=== PATIENT | female | born 1935 | race Caucasian/White ===

== ENCOUNTER → 2016-07-05 | Outpatient (CLI) | payer MEDICARE, OTHER ==
[~2016-07-05] MED LIST: ARTIFICIAL TEARS OU; CALCIUM CARBON500 M1 PO; CALCIUM WITH D31 CTB PO; CENTRUM1 TAB PO; CIPRO 500MG TA500 MG PO; CLARITIN REDITA10 MG PO; EVISTA 60MG60 MG/TAB PO; EVISTA PO; LASIX; LASIX 20MG TABL20 MG PO; MAXZIDE; MVI PO; NEVANAC OD; NORCO 325 MG-51 TAB PO; PRINIVIL10 MG PO; TYLENOL PM EXTR1 TA1 PO; VESICARE PO; [UNRECOGNIZED DRUG - OTHER]
== END ==
LOC: COL.RAD 12:01
DX: R91.1 Solitary pulmonary nodule (principal); S32.018A Other fracture of first lumbar vertebra, initial encounter for closed fracture
CPT/HCPCS: Q9967

== ENCOUNTER 2016-12-17 09:19 | Outpatient (CLI) | payer MEDICARE, OTHER ==
[~2016-12-17] VITALS: Ht 167.6 cm; Wt 45.9 kg
[2016-12-17] VITALS (22 sets, daily range): BP systolic 113–144; BP diastolic 41–102; PULSE 54–86; TEMP 98.2
[~2016-12-17 09:19] MED LIST changes: +ARICEPT ODT10 MG PO; +FOSAMAX 70MG TA70 MG PO; +PRINIVIL20 MG PO
== END 2016-12-17 15:30 | disposition home or self-care (01) ==
LOC: COL.RAD 09:19
DX: J18.1 Lobar pneumonia, unspecified organism (principal); J43.2 Centrilobular emphysema; J84.10 Pulmonary fibrosis, unspecified; R91.1 Solitary pulmonary nodule
CPT/HCPCS: J3010

== ENCOUNTER 2017-07-26 16:31 | Inpatient (IN) | payer MEDICARE, OTHER ==
[~2017-07-26] VITALS: Ht 167.6 cm; Wt 48.7 kg
[~2017-07-26 16:31] MED LIST changes: -ARTIFICIAL TEARS OU; +CENTRUM1 TA1 PO; -CENTRUM1 TAB PO; +LIQUIFILM TEARS15 ML OU
[2017-07-26 22:44] VITALS: BP 133/97; PULSE 86; TEMP 98.7
[2017-07-26] MEDS ORDERED: ANORO IH (22:59)
[2017-07-27 03:29] VITALS: BP 124/61; PULSE 61; TEMP 98.4
[2017-07-27 03:31] LABS: BASO % 0.2 % (0.0-2.0); EOS % 0.6 % (0-4.0); GRAN # 4.5 (1.4-6.5); GRAN % 70.9 % (42.2-75.2); HEMATOCRIT 39.9 % (37.0-47.0); HEMOGLOBIN 13.5 g/dl (12.5-16.0); LYMPH # 1.2 (1.2-3.4); LYMPH % 19.5 % (20.0-51.0); MEAN CELL VOLUME 91 fl (80.0-100.0); MEAN CORPUSCULAR HEMOGLOBIN 31 pg (27.0-31.0); MEAN CORPUSCULAR HGB CONC 34 g/dl (33.0-37.0); MEAN PLATELET VOLUME 11.6 fl (7.4-10.4); MONO # 0.5 (0.1-0.6); MONO % 8.3 % (1.7-9.3); PLATELET COUNT 100 K/mm3 (130-400); RED BLOOD COUNT 4.41 M/mm3 (4.10-5.30); REDCELL DISTRIBUTION WIDTH-CV 13.8 % (11.5-14.5)
[2017-07-27 03:42] LABS: ALBUMIN 3.4 gm/dL (3.5-5.0); CALCIUM 9.5 mg/dL (8.4-10.2); CREATININE, serum 0.77 mg/dL (0.52-1.25); POTASSIUM 4.6 mmol/L (3.4-5.0); TOTAL PROTEIN 6.6 gm/dL (6.4-8.2)
[2017-07-27 04:15] LABS: INR 1.1 (0.8-3.0); PROTHROMBIN TIME 12.7 SECONDS (9.7-12.8)
[2017-07-27 05:58] LABS: COLLECTION METHOD CLEAN CATCH
[2017-07-27 06:30] LABS: MUCOUS Present /lpf; PH 5 (5-8); SQUAMOUS EPITHELIAL None Seen /hpf; URINE APPEARANCE Clear; URINE BACTERIA Occasional /hpf; URINE BILIRUBIN Negative (NEGATIVE); URINE BLOOD 1+ (NEGATIVE); URINE COLOR Yellow; URINE GLUCOSE Negative (NEGATIVE); URINE KETONE Trace (NEGATIVE); URINE LEUKOCYTE ESTERASE Negative (NEGATIVE); URINE NITRATE Positive (NEGATIVE); URINE PROTEIN(semi-quant) Negative (NEGATIVE); URINE RBC 0-2 /hpf; URINE UROBILINOGEN Negative (NEGATIVE)
[2017-07-27 07:37] VITALS: BP 123/57; PULSE 56; TEMP 98
[2017-07-27 10:21] LABS: HEMOGLOBIN 13.8 g/dl (12.5-16.0)
[2017-07-27 11:52] VITALS: BP 132/64; PULSE 69; TEMP 98.1
[2017-07-27 13:34] LABS: HEMATOCRIT 41.6 % (37.0-47.0); HEMOGLOBIN 14.2 g/dl (12.5-16.0)
[2017-07-27 15:52] VITALS: BP 123/61; PULSE 73; TEMP 98.3
[2017-07-27 20:10] VITALS: BP 118/55; PULSE 60; TEMP 98.2
[2017-07-28] VITALS (7 sets, daily range): BP systolic 104–147; BP diastolic 49–81; PULSE 67–94; TEMP 97.6–98.9
[2017-07-28 07:16] LABS: BASO % 0.3 % (0.0-2.0); EOS # 0.1 (0.0-0.7); GRAN # 4.4 (1.4-6.5); HEMATOCRIT 38.6 % (37.0-47.0); HEMOGLOBIN 13.1 g/dl (12.5-16.0); LYMPH # 1.2 (1.2-3.4); LYMPH % 18.9 % (20.0-51.0); MEAN CELL VOLUME 90 fl (80.0-100.0); MEAN CORPUSCULAR HEMOGLOBIN 31 pg (27.0-31.0); MEAN CORPUSCULAR HGB CONC 34 g/dl (33.0-37.0); MEAN PLATELET VOLUME 12.6 fl (7.4-10.4); MONO # 0.6 (0.1-0.6); MONO % 9.5 % (1.7-9.3); PLATELET COUNT 88 K/mm3 (130-400); RED BLOOD COUNT 4.27 M/mm3 (4.10-5.30); REDCELL DISTRIBUTION WIDTH-CV 13.6 % (11.5-14.5)
[2017-07-28 07:32] LABS: CALCIUM 9.3 mg/dL (8.4-10.2); CREATININE, serum 0.73 mg/dL (0.52-1.25); MAGNESIUM 1.8 mg/dL (1.6-2.3); POTASSIUM 4.4 mmol/L (3.4-5.0)
[2017-07-29 04:38] VITALS: BP 108/82; PULSE 74; TEMP 98.3
[2017-07-29 06:07] LABS: BASO % 0.2 % (0.0-2.0); EOS # 0.1 (0.0-0.7); EOS % 1.8 % (0-4.0); GRAN # 3.8 (1.4-6.5); GRAN % 65.9 % (42.2-75.2); HEMOGLOBIN 12.6 g/dl (12.5-16.0); LYMPH # 1.2 (1.2-3.4); LYMPH % 21.3 % (20.0-51.0); MEAN CELL VOLUME 92 fl (80.0-100.0); MEAN CORPUSCULAR HEMOGLOBIN 32 pg (27.0-31.0); MEAN CORPUSCULAR HGB CONC 34 g/dl (33.0-37.0); MEAN PLATELET VOLUME 12.9 fl (7.4-10.4); MONO # 0.6 (0.1-0.6); MONO % 10.6 % (1.7-9.3); PLATELET COUNT 89 K/mm3 (130-400); REDCELL DISTRIBUTION WIDTH-CV 13.6 % (11.5-14.5)
[2017-07-29 06:18] LABS: HEMATOCRIT 36.8 % (37.0-47.0)
[2017-07-29 08:45] VITALS: BP 121/72; PULSE 77; TEMP 98.3
[2017-07-29] MEDS ORDERED: DULCOLAX STOOL100 MG PO (10:21)
[2017-07-29 11:30] VITALS: BP 120/89; PULSE 80; TEMP 97.6
== END 2017-07-29 14:03 | DRG 543 ==
LOC: COL.ER 16:31 → JCC 21:21
PROVIDERS: Internal Medicine; Nurse Practitioner; Surgery
DX: M80.052A Age-related osteoporosis with current pathological fracture, left femur, initial encounter for fracture (principal); S36.892A Contusion of other intra-abdominal organs, initial encounter; E44.0 Moderate protein-calorie malnutrition; Z68.1 Body mass index [BMI] 19.9 or less, adult; I10 Essential (primary) hypertension; F03.90 Unspecified dementia, unspecified severity, without behavioral disturbance, psychotic disturbance, mood disturbance, and anxiety; F17.210 Nicotine dependence, cigarettes, uncomplicated; W01.0XXA Fall on same level from slipping, tripping and stumbling without subsequent striking against object, initial encounter; J44.9 Chronic obstructive pulmonary disease, unspecified; S30.1XXA Contusion of abdominal wall, initial encounter
CPT/HCPCS: 99223-AI; 99232-AI; 99239; J1170; J2270; J2550; J7120

== ENCOUNTER 2017-07-29 10:27 | Inpatient (IN) | payer MEDICARE, OTHER ==
[~2017-07-29] VITALS: Ht 167.6 cm; Wt 46.2 kg
[~2017-07-29 10:27] MED LIST changes: +ANORO IH; +DULCOLAX STOOL100 MG PO
[2017-07-29 14:41] VITALS: BP 108/47; PULSE 74; TEMP 99.3
[2017-07-29 20:15] VITALS: BP 112/54; PULSE 67
[2017-07-30 05:49] VITALS: BP 101/58; PULSE 64; TEMP 97.6
[2017-07-30 15:53] VITALS: BP 104/49; PULSE 70; TEMP 98.3
[2017-07-31 04:58] VITALS: BP 110/63; PULSE 68; TEMP 97.9
[2017-07-31 15:35] VITALS: BP 123/54; PULSE 71; TEMP 98.3
[2017-08-01 05:38] VITALS: BP 117/58; PULSE 71; TEMP 97.7
[2017-08-01 14:00] VITALS: BP 113/59; PULSE 65; TEMP 98.5
[2017-08-02 06:13] VITALS: BP 103/63; PULSE 69; TEMP 98.6
[2017-08-02 17:16] VITALS: BP 115/60; PULSE 77; TEMP 98.3
[2017-08-03 06:21] VITALS: BP 123/53; PULSE 72; TEMP 98.4
[2017-08-03 17:20] VITALS: BP 100/51; PULSE 87; TEMP 97.9
[2017-08-04 06:09] VITALS: BP 118/68; PULSE 69; TEMP 98
[2017-08-04 15:13] VITALS: BP 120/66; PULSE 88; TEMP 98.8
[2017-08-05 06:29] LABS: BASO % 0.6 % (0.0-2.0); EOS # 0.2 (0.0-0.7); EOS % 2.9 % (0-4.0); GRAN # 2.9 (1.4-6.5); GRAN % 55.8 % (42.2-75.2); HEMOGLOBIN 11.5 g/dl (12.5-16.0); LYMPH # 1.4 (1.2-3.4); LYMPH % 26.5 % (20.0-51.0); MEAN CELL VOLUME 93 fl (80.0-100.0); MEAN CORPUSCULAR HEMOGLOBIN 31 pg (27.0-31.0); MEAN CORPUSCULAR HGB CONC 33 g/dl (33.0-37.0); MEAN PLATELET VOLUME 11.5 fl (7.4-10.4); MONO # 0.7 (0.1-0.6); MONO % 13.8 % (1.7-9.3); PLATELET COUNT 298 K/mm3 (130-400); RED BLOOD COUNT 3.74 M/mm3 (4.10-5.30); REDCELL DISTRIBUTION WIDTH-CV 14.4 % (11.5-14.5)
[2017-08-05 06:40] LABS: HEMATOCRIT 34.7 % (37.0-47.0)
[2017-08-05 06:54] VITALS: BP 124/64; PULSE 72; TEMP 98
[2017-08-05 15:10] VITALS: BP 103/43; PULSE 71; TEMP 97.9
[2017-08-06 06:22] VITALS: BP 111/43; PULSE 63; TEMP 97.9
[2017-08-06 18:36] VITALS: BP 98/55; PULSE 80; TEMP 98.7
[2017-08-07 03:48] VITALS: BP 97/53; PULSE 69; TEMP 98.3
[2017-08-07 11:10] VITALS: PULSE 64
[2017-08-07 17:44] VITALS: BP 102/65; PULSE 71; TEMP 98.3
[2017-08-08 05:32] VITALS: BP 111/56; BP 125/59; PULSE 70; PULSE 77; TEMP 98.3; TEMP 98.5
[2017-08-08 16:15] VITALS: BP 103/57; PULSE 87; TEMP 97.6
[2017-08-09 05:21] VITALS: BP 103/60; PULSE 76; TEMP 98.6
[2017-08-09] MEDS ORDERED: IPRATROPIUM BROM3 M1 IH ×2 (09:07)
[2017-08-09] MEDS ORDERED: NICODERM C21 MG/PATC TD (09:08)
[2017-08-09] MEDS ORDERED: TYLENOL 325MG325 MG PO (09:08)
[2017-08-09] MEDS ORDERED: DULCOLAX S10 MG/SUPP RC (09:09)
[2017-08-09] MEDS ORDERED: COLACE 100100 MG/CAP PO (09:09)
[2017-08-09] MEDS ORDERED: SENOKOT S 50 MG1 TAB PO (09:10)
[2017-08-09] MEDS ORDERED: ULTRAM 50MG TAB50 MG PO (09:10)
== END 2017-08-09 12:20 | DRG 560 ==
PROVIDERS: Internal Medicine
DX: M80.052D Age-related osteoporosis with current pathological fracture, left femur, subsequent encounter for fracture with routine healing (principal); K56.7 Ileus, unspecified; E44.0 Moderate protein-calorie malnutrition; Z68.1 Body mass index [BMI] 19.9 or less, adult; W18.30XA Fall on same level, unspecified, initial encounter; I10 Essential (primary) hypertension; F03.90 Unspecified dementia, unspecified severity, without behavioral disturbance, psychotic disturbance, mood disturbance, and anxiety; S36.892D Contusion of other intra-abdominal organs, subsequent encounter; W01.0XXD Fall on same level from slipping, tripping and stumbling without subsequent striking against object, subsequent encounter; J43.9 Emphysema, unspecified
CPT/HCPCS: 99222-AI; 99232-AI; 99239; J1644

== ENCOUNTER → 2017-08-22 | Outpatient (REF) ==
[~2017-08-22] MED LIST changes: +COLACE 100100 MG/CAP PO; +DULCOLAX S10 MG/SUPP RC; +IPRATROPIUM BROM3 M1 IH; +NICODERM C21 MG/PATC TD; +SENOKOT S 50 MG1 TAB PO; +TYLENOL 325MG325 MG PO; +ULTRAM 50MG TAB50 MG PO
[2017-08-22 14:19] LABS: COLLECTION METHOD CLEAN CATCH
[2017-08-22 14:38] LABS: AMORPHOUS CRYSTAL Present /uL; MUCOUS Present /lpf; PH 5 (5-8); URINE APPEARANCE Hazy; URINE BACTERIA Rare /hpf; URINE BILIRUBIN Negative (NEGATIVE); URINE BLOOD Negative (NEGATIVE); URINE COLOR Amber; URINE GLUCOSE Negative (NEGATIVE); URINE KETONE Trace (NEGATIVE); URINE LEUKOCYTE ESTERASE Trace (NEGATIVE); URINE NITRATE Positive (NEGATIVE); URINE PROTEIN(semi-quant) Negative (NEGATIVE); URINE UROBILINOGEN Negative (NEGATIVE)
== END ==
LOC: ZLAB.STJ 14:17
PROVIDERS: Family Medicine
DX: R30.0 Dysuria (principal)

== ENCOUNTER 2018-06-03 08:54 | Observation (INO) | payer MEDICARE, OTHER ==
[2018-06-03] VITALS (26 sets, daily range): BP systolic 104–173; BP diastolic 44–109; PULSE 56–104; TEMP 97.5–98.8
[~2018-06-03] VITALS: Ht 165.1 cm; Wt 62.0 kg
[2018-06-03] MEDS ORDERED: ASPIRIN 81M81 MG/TA2 PO (09:13)
[2018-06-03] MEDS ORDERED: CLARITIN 1010 MG/TAB PO (09:15)
[2018-06-03] MEDS ORDERED: MYRBETR50MG PO (09:17)
[2018-06-03] MEDS ORDERED: COMBIRESP IH (09:18)
--- NOTE | 2018-06-03 10:15 | NUR ---
PT WAS PLACED ON THE TABLE. TIMEOUT DONE. MONITORING EQUIPMENT PLACED.
--- NOTE | 2018-06-03 10:25 | NUR ---
PT IS DOING WELL. NO PAIN MEDS.
--- NOTE | 2018-06-03 10:30 | NUR ---
PT IS DOING WELL. TOLERATING PROCEDURE WELL. NO PAIN MEDS
--- NOTE | 2018-06-03 10:35 | NUR ---
PT DOING WELL.
--- NOTE | 2018-06-03 10:45 | NUR ---
PT DOING WELL.
--- NOTE | 2018-06-03 10:50 | NUR ---
PT TOLERATING PROCEDURE WELL
--- NOTE | 2018-06-03 10:55 | NUR ---
PROCEDURE COMPLETED. STATES FEELS PRETTY GOOD. PT WILL BE TRANSFERED TO EU 9 ON O2 @2L/NC
--- NOTE | 2018-06-03 11:15 | NUR ---
Back from lungs bx. 2 liters via nasal cannula. Daughter bedside
--- NOTE | 2018-06-03 12:37 | NUR ---
Tranported to CT by bed
--- NOTE | 2018-06-03 12:40 | NUR ---
PT VERY SOA WHEN LAYING DOWN. 02 @ 6 L/NC. DR COHEN PRESENT AND PROCEDURE BEGUN
--- NOTE | 2018-06-03 12:45 | NUR ---
PT DOING WELL
--- NOTE | 2018-06-03 12:50 | NUR ---
PT DOING WELL. HOLDING STILL DIRECTED
--- NOTE | 2018-06-03 12:55 | NUR ---
PT DOING WELL. BREATHING IMPROVED WITH PLACEMENT OF CHEST TUBE.
--- NOTE | 2018-06-03 13:00 | NUR ---
PT TAKEN TO EU 9. FAMILY BROUGHT INTO ROOM. REPORT TO BHARATH REGARDING HOUSE SUPERVISIOR AND DR KEARNEY
--- NOTE | 2018-06-03 13:10 | NUR ---
Back from CT with chest tube noted left upper chest. O2 sats 92 % on 3 liters via nasal cannula. Denies pain and SOA at this time. Daughter bedside
--- NOTE | 2018-06-03 13:19 | NUR ---
[facility]ONK[facility] SUPERVISIOR WAS NOTIFIED THAT PT NEEDED TO BE ADMITTED. SPOKE TO [facility]. DR COHEN WAS ALERTED THAT HE NEEDED TO CALL DR KEARNEY AND WAS GIVEN DR KEARNEY NUMBER. BHARATH CHAU WAS NOTIFIED THAT SHE NEEDED TO CALL [facility] FOR THE ROOM NUMBER. [facility] JUST CALLED AND WAS GIVEN EU NUMBER FOR BHARATH CHAU
--- NOTE | 2018-06-03 14:29 | NUR ---
Report given to Hodan CHAUmarketing project lead
--- NOTE | 2018-06-03 15:40 | NUR ---
PATIENT ADMITED INTO ROOM 344 POST LUNG BX/PNEUMO. LEFT CHEST [place] VALVE INPLACE. LEFT LUNG BASES DEMINISHED. A&P NOTED EXP WHEEZE. PATIENT REPORTS SHE HAS A HX OF SMOKING AND "SHOULD WEAR HER OXYGEN AT HOME". 02 @ 3L PER NC TO KEEP SATS IN 90'S. PATIENT IS SOB WITH ACTIVITY. 1 ASSIST WITH CANE. PATIENT IS VOIDING AND HAD BM TODAY. VSS. HOSPITALIST AT BEDSIDE.
--- NOTE | 2018-06-03 19:49 | NUR ---
Pt resting in bed, states she is ready to go to sleep. Reporting smoe generalized pain, given tylenol for pain control. Given extra pillow to sleep. Given evening medicatinos. Left chest tube to depednent drainage, clear drainage. Told pt to leave the chest tube alone, pt states she understands not to touch it. Pt has no further needs at this time. Lights dimmed, bed alarm on, call light in reach.
--- NOTE | 2018-06-03 21:39 | NUR ---
Assisted patient with walker to restroom. Returned to bed. Was able to walk without much difficulty. Reports some minor pain to left hip, but is tolerable.
--- NOTE | 2018-06-03 22:55 | NUR ---
Upon entering pt's room, pt's chest tube was placed on her bedside table. LUng sounds equal, pt not SOB. Vitals obtained, 99% on RA. Hospitalist and Radiologist notified. Stat CXR ordered, repeat in 30 minutes. Pt now laying flat on back. Gauze and tegaderm applied to site.
--- NOTE | 2018-06-03 23:34 | NUR ---
Repeat chest xray obtained and read by radiologist. Does not appear to have changed from prior chest xray. Will keep a close eye on pt throughout the night. Pt told to notify staff if she starts to feel short of breath, or notices any changes. Pt in sight from nurses station.
--- NOTE | 2018-06-04 00:51 | NUR ---
Lung sounds auscultated bilaterally, equal chest rise. Pt on 3 L oxygen via NC. No reports of SOB, difficulty breathing.
--- NOTE | 2018-06-04 01:45 | NUR ---
Pt sleeping comfortably, equal chest rise, lung sounds audible bilaterally.
--- NOTE | 2018-06-04 02:15 | NUR ---
Pt attempting to get out of bed. Nurse in room, had pt get back into bed. Equal chest rise, lung sounds audible bilaterally. Oxygen on via NC.
--- NOTE | 2018-06-04 02:44 | NUR ---
Pt sitting up at side of bed, nurse at bedside. Put new gown on pt, pt now lying down. Equal chest rise and lung sounds auscultated bilaterally.
[2018-06-04 03:16] VITALS: BP 125/69; PULSE 69; TEMP 98.5
--- NOTE | 2018-06-04 05:12 | NUR ---
This nurse was in another pt's room, heard bed alarm going off for this pt. Found patient in the bathroom. Let pt finish and then helped patient back to bed. Lung sounds auscultated on both sides, chest rise even. Pt has no c/o SOB/dyspnea, or pain at this time.
--- NOTE | 2018-06-04 05:42 | NUR ---
Pt slept for most of the night. After chest tube was pulled out pt has been monitored closely throughout the night. Sp02 has been high 90's, chest rise even, lung sounds have been auscultated on both sides all night. No reports of SOB/dyspnea/pain.
[2018-06-04 08:32] VITALS: BP 93/48; PULSE 64; TEMP 97.5
--- NOTE | 2018-06-04 09:44 | NUR ---
Patient resting in bed, reading a book. She denies pain. Patient had chest xray this am. She is hopeful for discharge. She has been up to the bathroom. denies Sob. She had breakfast. Will continue to motnior.
--- NOTE | 2018-06-04 12:24 | NUR ---
Patient ready for discharge. Her daughter here to take her to [facility]. Hospitalist team rounded this am, orders obtained this am. Report called to [facility], all quesions answered. Patient dressed & wheeled out with all belongings.
--- NOTE | 2018-06-04 12:43 | NUR ---
ERIN and SW student attended clinical rounding and met with patient to discuss discharge planning. Patient lives in [facility] care at [facility]. Her PCP is Dr Rowland and she obtains her medications from [facility]. Patients daughter Martina is DPOA. Patient is dc back to [facility] today. ERIN contacted Tristan to inform daughter is transporting back. Discharge orders faxed. Patient dc to [facility] for intermediate designer care.
== END 2018-06-04 12:27 ==
LOC: COL.RAD 08:54 → SURG 15:40 → COL.RAD 16:49 → SURG 16:49
PROVIDERS: ADMIT Hospitalist
DX: C34.12 Malignant neoplasm of upper lobe, left bronchus or lung (principal); J93.9 Pneumothorax, unspecified; F03.90 Unspecified dementia, unspecified severity, without behavioral disturbance, psychotic disturbance, mood disturbance, and anxiety; J43.9 Emphysema, unspecified; Z79.82 Long term (current) use of aspirin; Z99.81 Dependence on supplemental oxygen; Z87.891 Personal history of nicotine dependence; Z85.51 Personal history of malignant neoplasm of bladder; Z92.21 Personal history of antineoplastic chemotherapy; Z90.710 Acquired absence of both cervix and uterus; Z80.3 Family history of malignant neoplasm of breast; Z88.0 Allergy status to penicillin
CPT/HCPCS: 99222-AI; G0378; G0379

== ENCOUNTER → 2018-06-23 | Outpatient (CLI) | payer MEDICARE, OTHER ==
[~2018-06-23] MED LIST changes: +ASPIRIN 81M81 MG/TA2 PO; +CLARITIN 1010 MG/TAB PO; +COMBIRESP IH; +MYRBETR50MG PO
[2018-06-23 09:25] LABS: CREATININE, serum 0.95 (0.52-1.25)
== END ==
LOC: COL.LAB 08:41
PROVIDERS: Internal Medicine Pulmonary Disease
DX: C34.92 Malignant neoplasm of unspecified part of left bronchus or lung (principal)

== ENCOUNTER → 2018-07-01 | Outpatient (CLI) | payer MEDICARE, OTHER ==
[2018-07-01 20:20] LABS: BASO % 0.7 % (0.0-2.0); EOS # 0.2 (0.0-0.7); EOS % 4.8 % (0-4.0); GRAN % 44.7 % (42.2-75.2); HEMATOCRIT 42.1 % (37.0-47.0); HEMOGLOBIN 13.6 g/dl (12.5-16.0); LYMPH # 1.8 (1.2-3.4); LYMPH % 40.5 % (20.0-51.0); MEAN CELL VOLUME 91 fl (80.0-100.0); MEAN CORPUSCULAR HEMOGLOBIN 29 pg (27.0-31.0); MEAN CORPUSCULAR HGB CONC 32 g/dl (33.0-37.0); MEAN PLATELET VOLUME 12.4 fl (7.4-10.4); MONO # 0.4 (0.1-0.6); MONO % 9.1 % (1.7-9.3); PLATELET COUNT 178 K/mm3 (130-400); RED BLOOD COUNT 4.65 M/mm3 (4.10-5.30); REDCELL DISTRIBUTION WIDTH-CV 14.5 % (11.5-14.5)
[2018-07-01 20:26] LABS: ALANINE AMINOTRANSFERASE < 6 U/L (9-52); ALBUMIN 3.9 gm/dL (3.5-5.0); ALKALINE PHOSPHATASE 59 U/L (50-136); ANION GAP 9 mmol/L (7-16); AST,SGOT 21 U/L (15-37); BILIRUBIN,TOTAL 0.5 mg/dL (0.0-1.0); BLOOD UREA NITROGEN 20 mg/dL (7-17); CALCIUM 9.8 mg/dL (8.4-10.2); CARBON DIOXIDE 25 mmol/L (22-30); CHLORIDE 105 mmol/L (98-107); CREATININE, serum 1.01 (0.52-1.25); GLUCOSE 146 mg/dL (74-106); POTASSIUM 4.6 mmol/L (3.4-5.0); SODIUM 140 mmol/L (137-145); TOTAL PROTEIN 7.3 gm/dL (6.4-8.2)
== END ==
LOC: ZCOL.LAB 19:21 → ZLAB.STJ 19:21
PROVIDERS: Family Medicine
DX: I10 Essential (primary) hypertension (principal)

== ENCOUNTER → 2018-07-09 | Outpatient (CLI) | payer MEDICARE, OTHER ==
[2018-07-09 17:33] LABS: BASO % 0.6 % (0.0-2.0); EOS # 0.2 (0.0-0.7); EOS % 3.6 % (0-4.0); GRAN # 2.6 (1.4-6.5); GRAN % 51.3 % (42.2-75.2); HEMATOCRIT 43.1 % (37.0-47.0); HEMOGLOBIN 13.7 g/dl (12.5-16.0); LYMPH # 1.7 (1.2-3.4); LYMPH % 34.4 % (20.0-51.0); MEAN CELL VOLUME 90 fl (80.0-100.0); MEAN CORPUSCULAR HEMOGLOBIN 29 pg (27.0-31.0); MEAN CORPUSCULAR HGB CONC 32 g/dl (33.0-37.0); MEAN PLATELET VOLUME 11.9 fl (7.4-10.4); MONO # 0.5 (0.1-0.6); MONO % 9.9 % (1.7-9.3); PLATELET COUNT 185 K/mm3 (130-400); RED BLOOD COUNT 4.79 M/mm3 (4.10-5.30); REDCELL DISTRIBUTION WIDTH-CV 14.5 % (11.5-14.5)
[2018-07-09 17:38] LABS: ALANINE AMINOTRANSFERASE < 6 U/L (9-52); ALBUMIN 4.1 gm/dL (3.5-5.0); ALKALINE PHOSPHATASE 70 U/L (50-136); ANION GAP 9 mmol/L (7-16); AST,SGOT 30 U/L (15-37); BILIRUBIN,TOTAL 0.5 mg/dL (0.0-1.0); BLOOD UREA NITROGEN 23 mg/dL (7-17); CALCIUM 9.9 mg/dL (8.4-10.2); CARBON DIOXIDE 25 mmol/L (22-30); CHLORIDE 105 mmol/L (98-107); CREATININE, serum 0.98 (0.52-1.25); GLUCOSE 89 mg/dL (74-106); POTASSIUM 4.5 mmol/L (3.4-5.0); SODIUM 140 mmol/L (137-145); TOTAL PROTEIN 7.9 gm/dL (6.4-8.2)
== END ==
LOC: ZLAB.STJ 16:38
PROVIDERS: Family Medicine
DX: C34.90 Malignant neoplasm of unspecified part of unspecified bronchus or lung (principal)

== ENCOUNTER → 2019-06-10 | Outpatient (CLI) | payer MEDICARE, OTHER | LOC: ZLAB.STJ 14:25 | DX: Z01.89 Encounter for other specified special examinations (principal) ==

== ENCOUNTER → 2019-06-11 | Outpatient (CLI) | payer MEDICARE, OTHER | LOC: ZLAB.STJ 12:04 | DX: Z01.89 Encounter for other specified special examinations (principal) ==

== ENCOUNTER → 2019-07-13 | Outpatient (CLI) | payer MEDICARE, OTHER ==
[2019-07-13 11:43] LABS: BASO % 0.6 % (0.0-2.0); EOS # 0.1 (0.0-0.7); EOS % 2.3 % (0-4.0); GRAN # 2.4 (1.4-6.5); GRAN % 46.6 % (42.2-75.2); HEMATOCRIT 42.5 % (37.0-47.0); HEMOGLOBIN 13.8 g/dl (12.5-16.0); LYMPH # 2.1 (1.2-3.4); LYMPH % 40.7 % (20.0-51.0); MEAN CELL VOLUME 92 fl (80.0-100.0); MEAN CORPUSCULAR HEMOGLOBIN 30 pg (27.0-31.0); MEAN CORPUSCULAR HGB CONC 33 g/dl (33.0-37.0); MEAN PLATELET VOLUME 11.5 fl (7.4-10.4); MONO # 0.5 (0.1-0.6); MONO % 9.6 % (1.7-9.3); PLATELET COUNT 178 K/mm3 (130-400); RED BLOOD COUNT 4.63 M/mm3 (4.10-5.30)
[2019-07-13 12:18] LABS: ALBUMIN 3.8 gm/dL (3.5-5.0); BILIRUBIN,TOTAL 0.5 mg/dL (0.0-1.0); CALCIUM 9.6 mg/dL (8.4-10.2); CREATININE, serum 0.78 (0.52-1.25); POTASSIUM 4.3 mmol/L (3.4-5.0); TOTAL PROTEIN 7.3 gm/dL (6.4-8.2)
== END ==
LOC: ZLAB.STJ 10:53
PROVIDERS: Family Medicine
DX: R79.89 Other specified abnormal findings of blood chemistry (principal)

== ENCOUNTER → 2019-09-03 | Outpatient (CLI) | payer MEDICARE, OTHER | LOC: ZLAB.STJ 14:48 | DX: Z11.59 Encounter for screening for other viral diseases (principal); Z01.84 Encounter for antibody response examination ==

== ENCOUNTER → 2019-11-13 | Outpatient (CLI) | payer MEDICARE, OTHER ==
[2019-11-13 13:22] LABS: BASO % 0.4 % (0.0-2.0); CALCIUM 9.5 mg/dL (8.4-10.2); CREATININE, serum 0.9 (0.52-1.25); EOS # 0.1 (0.0-0.7); EOS % 1.9 % (0-4.0); GRAN # 2.6 (1.4-6.5); GRAN % 55.4 % (42.2-75.2); HEMATOCRIT 44.5 % (37.0-47.0); HEMOGLOBIN 14.3 g/dl (12.5-16.0); LYMPH # 1.5 (1.2-3.4); LYMPH % 32.4 % (20.0-51.0); MEAN CELL VOLUME 91 fl (80.0-100.0); MEAN CORPUSCULAR HEMOGLOBIN 29 pg (27.0-31.0); MEAN CORPUSCULAR HGB CONC 32 g/dl (33.0-37.0); MEAN PLATELET VOLUME 11.8 fl (7.4-10.4); MONO # 0.5 (0.1-0.6); MONO % 9.7 % (1.7-9.3); PLATELET COUNT 194 K/mm3 (130-400); POTASSIUM 4.7 mmol/L (3.4-5.0); RED BLOOD COUNT 4.88 M/mm3 (4.10-5.30); REDCELL DISTRIBUTION WIDTH-CV 14.2 % (11.5-14.5)
== END ==
LOC: ZLAB.STJ 12:59
PROVIDERS: Family Medicine
DX: R68.89 Other general symptoms and signs (principal); R79.89 Other specified abnormal findings of blood chemistry

== ENCOUNTER → 2020-04-04 | Outpatient (REF) | payer MEDICARE, OTHER ==
[2020-04-04 18:47] LABS: COLLECTION METHOD CLEAN CATCH
[2020-04-04 18:59] LABS: BUDDING YEAST Present /hpf; MUCOUS Present /lpf; PH 5 (5-8); SQUAMOUS EPITHELIAL 0-2 /hpf; URINE APPEARANCE Hazy; URINE BACTERIA Rare /hpf; URINE BILIRUBIN Negative (NEGATIVE); URINE BLOOD Negative (NEGATIVE); URINE COLOR Yellow; URINE GLUCOSE Negative (NEGATIVE); URINE KETONE 1+ (NEGATIVE); URINE LEUKOCYTE ESTERASE Negative (NEGATIVE); URINE NITRATE Negative (NEGATIVE); URINE PROTEIN(semi-quant) 1+ (NEGATIVE); URINE RBC >50 /hpf; URINE UROBILINOGEN Negative (NEGATIVE)
== END ==
LOC: ZLAB.STJ 18:31
PROVIDERS: Family Medicine
DX: Z01.89 Encounter for other specified special examinations (principal)

== ENCOUNTER → 2020-04-26 | Outpatient (REF) ==
[2020-04-26 12:34] LABS: BASO % 0.5 % (0.0-2.0); EOS # 0.2 (0.0-0.7); EOS % 5.4 % (0-4.0); GRAN # 1.5 (1.4-6.5); GRAN % 41.2 % (42.2-75.2); HEMATOCRIT 40.9 % (37.0-47.0); HEMOGLOBIN 13.2 g/dl (12.5-16.0); LYMPH # 1.5 (1.2-3.4); LYMPH % 39.4 % (20.0-51.0); MEAN CELL VOLUME 91 fl (80.0-100.0); MEAN CORPUSCULAR HEMOGLOBIN 29 pg (27.0-31.0); MEAN CORPUSCULAR HGB CONC 32 g/dl (33.0-37.0); MEAN PLATELET VOLUME 11.6 fl (7.4-10.4); MONO # 0.5 (0.1-0.6); PLATELET COUNT 180 K/mm3 (130-400); RED BLOOD COUNT 4.52 M/mm3 (4.10-5.30)
[2020-04-26 12:48] LABS: CALCIUM 9.1 mg/dL (8.4-10.2); CREATININE, serum 0.81 (0.52-1.25); POTASSIUM 4.4 mmol/L (3.4-5.0)
== END ==
LOC: ZLAB.STJ 12:03
PROVIDERS: Family Medicine
DX: Z01.89 Encounter for other specified special examinations (principal)

== ENCOUNTER → 2020-04-27 | Outpatient (CLI) | payer MEDICARE, OTHER ==
[2020-04-27 10:19] LABS: COLLECTION METHOD CLEAN CATCH
[2020-04-27 10:55] LABS: AMORPHOUS CRYSTAL Present /uL; MUCOUS Present /lpf; PH 5 (5-8); SQUAMOUS EPITHELIAL 0-2 /hpf; URINE APPEARANCE Turbid; URINE BACTERIA None Seen /hpf; URINE BILIRUBIN Negative (NEGATIVE); URINE BLOOD Negative (NEGATIVE); URINE COLOR Yellow; URINE GLUCOSE Negative (NEGATIVE); URINE KETONE Negative (NEGATIVE); URINE LEUKOCYTE ESTERASE 2+ (NEGATIVE); URINE NITRATE Positive (NEGATIVE); URINE PROTEIN(semi-quant) Negative (NEGATIVE); URINE RBC None Seen /hpf; URINE UROBILINOGEN Negative (NEGATIVE)
== END ==
LOC: ZLAB.STJ 09:52
PROVIDERS: Family Medicine
DX: N39.0 Urinary tract infection, site not specified (principal)

== ENCOUNTER → 2020-05-11 | Outpatient (REF) | LOC: ZLAB.STJ 14:54 | DX: Z01.89 Encounter for other specified special examinations (principal) ==

== ENCOUNTER → 2020-05-13 | Outpatient (CLI) | payer MEDICARE, OTHER ==
[2020-05-13 11:52] LABS: COLLECTION METHOD CLEAN CATCH
[2020-05-13 12:11] LABS: MUCOUS Present /lpf; PH 7 (5-8); SQUAMOUS EPITHELIAL 0-2 /hpf; URINE APPEARANCE Clear; URINE BACTERIA None Seen /hpf; URINE BILIRUBIN Negative (NEGATIVE); URINE BLOOD Negative (NEGATIVE); URINE COLOR Yellow; URINE GLUCOSE Negative (NEGATIVE); URINE KETONE Negative (NEGATIVE); URINE LEUKOCYTE ESTERASE Negative (NEGATIVE); URINE NITRATE Negative (NEGATIVE); URINE PROTEIN(semi-quant) 1+ (NEGATIVE); URINE RBC 0-2 /hpf
== END ==
LOC: ZLAB.STJ 11:40
PROVIDERS: Family Medicine
DX: Z85.51 Personal history of malignant neoplasm of bladder (principal)

== ENCOUNTER → 2020-06-14 | Outpatient (CLI) | payer MEDICARE, OTHER ==
[2020-06-14 17:54] LABS: BASO # 0.1 (0.0-0.2); EOS # 0.2 (0.0-0.7); EOS % 3.4 % (0-4.0); GRAN # 2.4 (1.4-6.5); GRAN % 46.9 % (42.2-75.2); HEMATOCRIT 44.5 % (37.0-47.0); HEMOGLOBIN 14.3 g/dl (12.5-16.0); LYMPH # 1.9 (1.2-3.4); LYMPH % 37.6 % (20.0-51.0); MEAN CELL VOLUME 91 fl (80.0-100.0); MEAN CORPUSCULAR HEMOGLOBIN 29 pg (27.0-31.0); MEAN CORPUSCULAR HGB CONC 32 g/dl (33.0-37.0); MEAN PLATELET VOLUME 12.7 fl (7.4-10.4); MONO # 0.6 (0.1-0.6); MONO % 10.9 % (1.7-9.3); PLATELET COUNT 227 K/mm3 (130-400); REDCELL DISTRIBUTION WIDTH-CV 15.4 % (11.5-14.5)
== END ==
LOC: ZLAB.STJ 12:09
PROVIDERS: Family Medicine
DX: Z01.89 Encounter for other specified special examinations (principal)

== ENCOUNTER → 2020-10-14 | Outpatient (REF) ==
[2020-10-14 15:49] LABS: COLLECTION METHOD CLEAN CATCH
[2020-10-14 16:01] LABS: MUCOUS Present /lpf; PH 6 (5-8); SQUAMOUS EPITHELIAL 0-2 /hpf; URINE APPEARANCE Hazy; URINE BACTERIA None Seen /hpf; URINE BILIRUBIN Negative (NEGATIVE); URINE BLOOD Negative (NEGATIVE); URINE COLOR Yellow; URINE GLUCOSE Negative (NEGATIVE); URINE KETONE Negative (NEGATIVE); URINE LEUKOCYTE ESTERASE Trace (NEGATIVE); URINE NITRATE Positive (NEGATIVE); URINE PROTEIN(semi-quant) Negative (NEGATIVE); URINE UROBILINOGEN Negative (NEGATIVE)
== END ==
LOC: ZLAB.STJ 15:48
PROVIDERS: Family Medicine
DX: Z85.51 Personal history of malignant neoplasm of bladder (principal)

== ENCOUNTER 2020-11-13 22:05 | Emergency (ER) | payer MEDICARE, OTHER ==
[~2020-11-13] VITALS: Ht 167.6 cm; Wt 60.0 kg
[2020-11-13 23:10] LABS: BASO % 0.6 % (0.0-2.0); EOS % 0.4 % (0-4.0); GRAN # 5.2 (1.4-6.5); GRAN % 72.9 % (42.2-75.2); HEMATOCRIT 45.6 % (37.0-47.0); HEMOGLOBIN 14.9 g/dl (12.5-16.0); LYMPH # 1.2 (1.2-3.4); LYMPH % 16.7 % (20.0-51.0); MEAN CELL VOLUME 89 fl (80.0-100.0); MEAN CORPUSCULAR HEMOGLOBIN 29 pg (27.0-31.0); MEAN CORPUSCULAR HGB CONC 33 g/dl (33.0-37.0); MEAN PLATELET VOLUME 12.1 fl (7.4-10.4); MONO # 0.7 (0.1-0.6); MONO % 9.1 % (1.7-9.3); PLATELET COUNT 201 K/mm3 (130-400); RED BLOOD COUNT 5.15 M/mm3 (4.10-5.30); REDCELL DISTRIBUTION WIDTH-CV 14.7 % (11.5-14.5)
[2020-11-13 23:39] LABS: COLLECTION METHOD CLEAN CATCH
[2020-11-13 23:57] LABS: MUCOUS Present /lpf; PH 5 (5-8); SQUAMOUS EPITHELIAL None Seen /hpf; URINE APPEARANCE Hazy; URINE BACTERIA None Seen /hpf; URINE BILIRUBIN Negative (NEGATIVE); URINE BLOOD Negative (NEGATIVE); URINE COLOR Yellow; URINE GLUCOSE Negative (NEGATIVE); URINE KETONE Trace (NEGATIVE); URINE LEUKOCYTE ESTERASE Negative (NEGATIVE); URINE NITRATE Negative (NEGATIVE); URINE PROTEIN(semi-quant) 2+ (NEGATIVE); URINE UROBILINOGEN Negative (NEGATIVE)
[2020-11-14 00:18] LABS: ALBUMIN 3.9 gm/dL (3.5-5.0); BILIRUBIN,TOTAL 0.8 mg/dL (0.0-1.0); CREATININE, serum 0.99 (0.52-1.25); POTASSIUM 3.7 mmol/L (3.4-5.0); TOTAL PROTEIN 7.4 gm/dL (6.4-8.2)
[2020-11-14 03:55] VITALS: BP 167/49; PULSE 86; TEMP 98.7
== END 2020-11-14 02:30 | disposition home or self-care (01) ==
LOC: COL.ER 22:05
PROVIDERS: Personal Emergency Response Attendant
DX: F03.90 Unspecified dementia, unspecified severity, without behavioral disturbance, psychotic disturbance, mood disturbance, and anxiety (principal); J44.9 Chronic obstructive pulmonary disease, unspecified; Z87.891 Personal history of nicotine dependence; Z79.899 Other long term (current) drug therapy; W19.XXXA Unspecified fall, initial encounter